=== PATIENT | female | born 1995 | race Caucasian/White ===

== ENCOUNTER 2016-10-03 21:33 | Emergency (ER) | payer SELFPAY ==
[~2016-10-03] VITALS: Ht 165.1 cm; Wt 55.0 kg
[2016-10-03] MEDS ORDERED: DIPHENHYDRAMINE 50MG CAPSULE PO ONE (22:30)
[2016-10-03 22:35] VITALS: BP 103/68
== END 2016-10-03 23:08 | disposition home or self-care (01) ==
LOC: EDBD 21:33 → ER 21:33
DX: R22.0 Localized swelling, mass and lump, head (principal); Z98.890 Other specified postprocedural states
CPT/HCPCS: 99283; Z7610; Q0163